=== PATIENT | female | born 2000 | race Caucasian/White ===

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

== ENCOUNTER 2018-02-03 14:51 | Emergency (ER) | payer OTHER, MEDICAID ==
[2018-02-03 16:33] LABS: KETONE, URINE AUTO RFX NEGATIVE (NEGATIVE); LEUKOCYTE ESTERASE UR AUTO RFX NEGATIVE (NEGATIVE); MUCUS, URINE RFX SMALL (NEGATIVE); NITRITE, URINE AUTO RFX NEGATIVE (NEGATIVE); RBC, URINE AUTO RFX 7 /HPF (0-3); SPECIFIC GRAVITY UR AUTO RFX 1.014 (1.002-1.035); SQUAM EPITHELIAL CELL UR AURFX 2 /HPF (0-6); WBC, URINE AUTO RFX 3 /HPF (0-3)
[2018-02-03 18:04] LABS: CONTROL LINE UCG INT CTR LINE PRESENT; URINE PREG TEST NEGATIVE (NEGATIVE)
[2018-02-03 22:08] LABS: CHLAMYDIA DNA AMPLIFICATION NEGATIVE (NEGATIVE); GC DNA AMPLIFICATION NEGATIVE (NEGATIVE)
== END 2018-02-03 20:51 | disposition home or self-care (01) ==
LOC: M ED 14:51
DX: N93.9 Abnormal uterine and vaginal bleeding, unspecified (principal); N83.01 Follicular cyst of right ovary; N85.00 Endometrial hyperplasia, unspecified; Z97.5 Presence of (intrauterine) contraceptive device; F17.200 Nicotine dependence, unspecified, uncomplicated; Z79.899 Other long term (current) drug therapy
CPT/HCPCS: 76856

== ENCOUNTER 2018-08-25 19:43 | Emergency (ER) | payer OTHER | END 2018-08-25 21:24 | disposition home or self-care (01) | LOC: M ED 19:43 | DX: S39.002A Unspecified injury of muscle, fascia and tendon of lower back, initial encounter (principal); S16.1XXA Strain of muscle, fascia and tendon at neck level, initial encounter; V49.59XA Passenger injured in collision with other motor vehicles in traffic accident, initial encounter; Y92.410 Unspecified street and highway as the place of occurrence of the external cause; Z88.0 Allergy status to penicillin; F17.210 Nicotine dependence, cigarettes, uncomplicated | CPT/HCPCS: 70450 ==

== ENCOUNTER 2019-02-12 09:52 | Emergency (ER) | payer OTHER, SELFPAY ==
[~2019-02-12] VITALS: Ht 152.4 cm; Wt 62.7 kg
[~2019-02-12 09:52] MED LIST: IBUP-1114 PO; TYLE325T5 PO; ZYRT10CA5 PO
[2019-02-12] MEDS ORDERED: METOCLOPRAMIDE INJ 10MG/2ML VIAL (J2765) IV ONE (10:30)
[2019-02-12] MEDS ORDERED: NS 1,000 ML IV ONE (10:30)
[2019-02-12 11:03] LABS: HCG, SERUM QUALITATIVE NEGATIVE (NEGATIVE)
[2019-02-12 11:06] LABS: BLOOD UREA NITROGEN 12 MG/DL (7-18); CALCIUM LEVEL 8.6 MG/DL (8.5-10.1); CARBON DIOXIDE LEVEL 24 MEQ/L (21-32); CHLORIDE LEVEL 109 MEQ/L (98-107); CREATININE FOR GFR 0.58 MG/DL (0.55-1.30); GLUCOSE, FASTING 85 MG/DL (70-100); POTASSIUM SERUM 4.2 MEQ/L (3.5-5.1); SODIUM LEVEL 141 MEQ/L (136-145)
[2019-02-12 11:45] VITALS: BP 103/60
== END 2019-02-12 11:47 | disposition home or self-care (01) ==
LOC: M ED 09:52
DX: R11.2 Nausea with vomiting, unspecified (principal); R19.7 Diarrhea, unspecified; Z88.0 Allergy status to penicillin
CPT/HCPCS: 80048; 84703; 96361; 96374; 99284; J2765

== ENCOUNTER 2019-12-10 21:54 | Emergency (ER) | payer MEDICAID, OTHER, SELFPAY ==
[~2019-12-10] VITALS: Ht 152.4 cm; Wt 64.3 kg
[2019-12-10 21:55] VITALS: BP 107/75
[2019-12-10 22:51] LABS: INFLUENZA A AMPLIFICATION NEGATIVE (NEGATIVE); INFLUENZA B AMPLIFICATION POSITIVE (NEGATIVE)
[2019-12-10] MEDS ORDERED: OSEL75CA PO (22:58)
[2019-12-10] MEDS ORDERED: OSELTAMIVIR PHOSPHATE 75 MG CAP (TAMIFLU) PO ONE (23:00)
--- NOTE | 2019-12-11 06:58 | REP ---
Clinical: Cough and shortness of breath . Comparison: None . Technique: PA and lateral. Findings: The mediastinum and cardiac silhouette are normal. The lung fischer are clear and without acute consolidation, effusion, or pneumothorax. The skeletal structures are intact and normal. Impression: 1. No focal consolidation or effusion. Electronically Signed by Gavino Ferguson MD 12/11/2019 06:49 A
== END 2019-12-10 23:19 | disposition home or self-care (01) ==
LOC: M ED 21:54
DX: J10.1 Influenza due to other identified influenza virus with other respiratory manifestations (principal); R11.2 Nausea with vomiting, unspecified; F17.210 Nicotine dependence, cigarettes, uncomplicated; Z88.0 Allergy status to penicillin

== ENCOUNTER 2020-04-05 17:29 | Emergency (ER) | payer MEDICAID ==
[~2020-04-05] VITALS: Ht 152.4 cm; Wt 60.3 kg
[~2020-04-05 17:29] MED LIST changes: +OSEL75CA PO
[2020-04-05 18:38] LABS: BASO # 0.1 10^3/uL (0.0-0.2); BASO % 0.5 % (0.0-1.0); EOS # 0.2 10^3/uL (0.0-0.5); EOS % 1.6 % (0.0-3.0); HEMATOCRIT 44.8 % (36.0-47.0); HEMOGLOBIN 15.3 g/dl (12.0-15.5); LYMPH # 1.9 10^3/uL (1.5-5.0); LYMPH % 19.7 % (24.0-44.0); MEAN CORPUSCULAR HEMOGLOBIN 31.7 pg (27.0-33.0); MEAN CORPUSCULAR HGB CONC 34.2 g/dl (32.0-36.5); MEAN CORPUSCULAR VOLUME 92.9 fl (80.0-96.0); MONO # 0.9 10^3/uL (0.0-0.8); MONO % 9.6 % (0.0-5.0); NEUTROPHILS # 6.4 10^3/uL (1.5-8.5); NEUTROPHILS % 68.2 % (36.0-66.0); PLATELET COUNT, AUTOMATED 363 10^3/uL (150-450); RED BLOOD COUNT 4.82 10^6/uL (4.00-5.40); WHITE BLOOD COUNT 9.4 10^3/uL (4.0-10.0)
[2020-04-05 19:11] LABS: ALBUMIN 4.1 GM/DL (3.2-5.2); BILIRUBIN,DIRECT 0.2 MG/DL (0.0-0.2); BILIRUBIN,TOTAL 0.5 MG/DL (0.2-1.0)
[2020-04-05] MEDS ORDERED: ISOVUE-370 76% 100ML VIAL As Ordered ONE (20:24)
[2020-04-05 21:43] VITALS: BP 125/62
--- NOTE | 2020-04-06 13:04 | REP ---
REASON FOR EXAM: Right lower quadrant pain. COMPARISON: None. CONTRAST: 100 mL [id number]. Preliminary report was given by [facility]R. The lung bases are clear. The liver, gallbladder, spleen, pancreas, adrenal glands, and kidneys are within normal limits. The abdominal aorta and para-aortic regions are within normal limits. The bowel loops and their mesenteries are within normal limits. The appendix is well visualized and is within normal limits. No free fluid or free air is seen in the abdomen. There is no intra-abdominal mass or adenopathy. CT PELVIS: The bowel loops and their mesenteries are within normal limits. There is no free pelvic air. There is a trace amount of free pelvic fluid, likely physiologic. There is no pelvic mass. Bone window technique through the examination shows the osseous structures to be within normal limits. IMPRESSION: CT findings are within normal limits. Electronically Signed by Michael Healy DO 04/06/2020 02:31 P
== END 2020-04-05 21:44 | disposition home or self-care (01) ==
LOC: M ED 17:29
DX: R10.9 Unspecified abdominal pain (principal); R11.2 Nausea with vomiting, unspecified; Z88.0 Allergy status to penicillin; F17.210 Nicotine dependence, cigarettes, uncomplicated; F12.20 Cannabis dependence, uncomplicated
CPT/HCPCS: 36415; 74177; 80047; 80076; 81001; 83690; 84702; 85025; 99284; Q9967

== ENCOUNTER → 2021-10-12 | Outpatient (REF) | payer OTHER ==
[2021-10-12 18:40] LABS: RSV AMPLIFICATION NEGATIVE (NEGATIVE)
== END ==
LOC: M LAB REF 16:47
PROVIDERS: ATTEND Physician Assistant
DX: R50.9 Fever, unspecified (principal); R05.9 Cough, unspecified

== ENCOUNTER → 2022-02-04 | Outpatient (REF) | payer OTHER | LOC: M LAB REF 16:30 | PROVIDERS: ATTEND Physician Assistant | DX: J02.9 Acute pharyngitis, unspecified (principal) ==

== ENCOUNTER → 2023-03-13 | Outpatient (CLI) | payer OTHER ==
[2023-03-13 13:58] LABS: HEMATOCRIT 39.6 % (36.0-47.0); HEMOGLOBIN 13.1 g/dl (12.0-15.5); MEAN CORPUSCULAR HEMOGLOBIN 31.3 pg (27.0-33.0); MEAN CORPUSCULAR HGB CONC 33.1 g/dl (32.0-36.5); MEAN CORPUSCULAR VOLUME 94.7 fl (80.0-96.0); PLATELET COUNT, AUTOMATED 343 10^3/uL (150-450); RED BLOOD COUNT 4.18 10^6/uL (4.00-5.40); WHITE BLOOD COUNT 9.2 10^3/uL (4.0-10.0)
[2023-03-13 14:51] LABS: HIV 1&2 SCREEN NEGATIVE (NEGATIVE)
[2023-03-13 15:17] LABS: GC DNA AMPLIFICATION NEGATIVE (NEGATIVE)
== END ==
LOC: M PLALAB 10:36
PROVIDERS: ATTEND Obstetrics & Gynecology
DX: Z34.80 Encounter for supervision of other normal pregnancy, unspecified trimester (principal)

== ENCOUNTER → 2023-04-29 | Outpatient (CLI) | payer OTHER | LOC: M PLALAB 15:12 | PROVIDERS: ATTEND Advanced Practice Midwife | DX: Z34.82 Encounter for supervision of other normal pregnancy, second trimester (principal) ==

== ENCOUNTER → 2023-05-02 | Outpatient (CLI) | payer OTHER | LOC: M PLALAB 15:58 | PROVIDERS: ATTEND Advanced Practice Midwife | DX: Z34.80 Encounter for supervision of other normal pregnancy, unspecified trimester (principal) ==

== ENCOUNTER → 2023-06-04 | Outpatient (CLI) | payer OTHER | LOC: M WHC 15:30 | PROVIDERS: ATTEND Advanced Practice Midwife | DX: Z34.02 Encounter for supervision of normal first pregnancy, second trimester (principal) ==

== ENCOUNTER → 2023-07-17 | Outpatient (CLI) | payer OTHER | LOC: M WHC 14:13 | PROVIDERS: ATTEND Advanced Practice Midwife | DX: Z34.02 Encounter for supervision of normal first pregnancy, second trimester (principal) ==

== ENCOUNTER → 2023-08-15 | Outpatient (CLI) | payer OTHER ==
[2023-08-15 18:07] LABS: HEMATOCRIT 32.8 % (36.0-47.0); HEMOGLOBIN 11.1 g/dl (12.0-15.5); MEAN CORPUSCULAR HEMOGLOBIN 31.7 pg (27.0-33.0); MEAN CORPUSCULAR HGB CONC 33.8 g/dl (32.0-36.5); MEAN CORPUSCULAR VOLUME 93.7 fl (80.0-96.0); PLATELET COUNT, AUTOMATED 315 10^3/uL (150-450); WHITE BLOOD COUNT 8.3 10^3/uL (4.0-10.0)
[2023-08-15 19:59] LABS: GC DNA AMPLIFICATION NEGATIVE (NEGATIVE)
== END ==
LOC: M PLALAB 14:10
PROVIDERS: ATTEND Advanced Practice Midwife
DX: Z34.02 Encounter for supervision of normal first pregnancy, second trimester (principal)

== ENCOUNTER → 2023-09-29 | Outpatient (REF) | payer OTHER | LOC: M SFHCWAGY 12:26 | PROVIDERS: ATTEND Specialist | DX: Z34.03 Encounter for supervision of normal first pregnancy, third trimester (principal) ==

== ENCOUNTER 2023-10-20 17:36 | Inpatient (IN) | payer OTHER ==
[~2023-10-20] VITALS: Ht 152.4 cm; Wt 82.4 kg
[2023-10-20 17:57] VITALS: BP 126/77
[2023-10-20 19:35] VITALS: BP 134/63
[2023-10-20] MEDS ORDERED: LACTATED RINGER'S 1000 ML IV STA (20:09)
[2023-10-20] MEDS ORDERED: CARBOPROST TROMETHAMINE 250 MCG/ML AMP IM PRN (20:10)
[2023-10-20] MEDS ORDERED: METHYLERGONOVINE MALEATE 0.2MG/ML 1ML VIAL IM PRN (20:10)
[2023-10-20] MEDS ORDERED: LIDOCAINE 1% MDV 20ML VIAL INFIL PRN (20:10)
[2023-10-20] MEDS ORDERED: OXYTOCIN DRIP 30 UNITS in IV 1 EA IV PRN (20:10)
[2023-10-20] MEDS ORDERED: TRANEXAMIC ACID INJection 1,000 MG in NS 100 ML IV PRN (20:10)
[2023-10-20] MEDS ORDERED: OXYTOCIN INJ 10UNITS/ML 1ML VIAL IM PRN (20:10)
[2023-10-20] MEDS ORDERED: HOME MED LIST COMPLETE! XX SCH (20:50)
[2023-10-20 20:53] LABS: HEMATOCRIT 33.2 % (36.0-47.0); HEMOGLOBIN 11.3 g/dl (12.0-15.5); MEAN CORPUSCULAR HEMOGLOBIN 30.3 pg (27.0-33.0); PLATELET COUNT, AUTOMATED 369 10^3/uL (150-450); RED BLOOD COUNT 3.73 10^6/uL (4.00-5.40); WHITE BLOOD COUNT 10.9 10^3/uL (4.0-10.0)
[2023-10-20 21:07] VITALS: BP 108/59
[2023-10-20 22:26] VITALS: BP 140/62
[2023-10-20 22:27] VITALS: BP 112/55
[2023-10-20 23:53] VITALS: BP 136/79
[2023-10-21] VITALS (8 sets, daily range): BP systolic 118–135; BP diastolic 59–86
[2023-10-21] MEDS ORDERED: IBUPROFEN 600MG TAB PO PRN (01:30)
[2023-10-21] MEDS ORDERED: MOM 30ML SUSPENSION UDC PO PRN (01:30)
[2023-10-21] MEDS ORDERED: ANUSOL HC CREAM 30GM TOP PRN (01:30)
[2023-10-21] MEDS ORDERED: DIBUCAINE 1% OINTMENT 30GM TOP PRN (01:30)
[2023-10-21] MEDS ORDERED: IBUPROFEN 800 MG TAB PO PRN (01:30)
[2023-10-21] MEDS ORDERED: ACETAMINOPHEN TAB 650MG DOSE (2X325MG) PO PRN (01:30)
[2023-10-21] MEDS ORDERED: DOCUSATE SODIUM 100MG CAPSULE PO PRN (01:30)
[2023-10-21] MEDS ORDERED: RHOGAM 300MCG (1500IU) INJ IM SCH (01:30)
[2023-10-21] MEDS ORDERED: ACETAMINOPHEN 500 MG TAB PO PRN (01:30)
[2023-10-21] MEDS: PRENATAL VITAMINS CHEWABLE TABLET PO SCH (08:27)
[2023-10-22 06:00] VITALS: BP 110/52
[2023-10-22] MEDS: PRENATAL VITAMINS CHEWABLE TABLET PO SCH (09:25)
[2023-10-22 18:00] VITALS: BP 117/66; O2SAT 99
[2023-10-23 06:00] VITALS: BP 106/64; O2SAT 99
[2023-10-23] MEDS: PRENATAL VITAMINS CHEWABLE TABLET PO SCH (08:37)
[2023-10-23] MEDS ORDERED: MEASLES,MUMPS,RUBELLA VACCINE INJ (MMR-II) SC.IMMUN ONE (09:00)
[2023-10-23] MEDS ORDERED: ACET1TAB55 PO (11:18)
[2023-10-23] MEDS ORDERED: IBUP-1022 PO (11:18)
== END 2023-10-23 15:00 | disposition home or self-care (01) | DRG 560 ==
LOC: M LDO 17:36 → M LDI 20:20 → M OBS 10-21 03:20
PROVIDERS: ADMIT Advanced Practice Midwife; ATTEND Advanced Practice Midwife
PROC: 10E0XZZ Delivery of Products of Conception, External Approach (ICD-10-PCS; principal; 2023-10-21)
PROC: 0HQ9XZZ Repair Perineum Skin, External Approach (ICD-10-PCS; 2023-10-21)
DX: O70.0 First degree perineal laceration during delivery (principal); Z88.0 Allergy status to penicillin; Z3A.38 38 weeks gestation of pregnancy; Z37.0 Single live birth

== ENCOUNTER → 2025-01-21 | Outpatient (CLI) | payer OTHER, MEDICAID ==
[~2025-01-21] MED LIST changes: +ACET1TAB55 PO; +IBUP-1022 PO
== END ==
LOC: M RAD 15:17
PROVIDERS: ATTEND Physician Assistant
DX: S62.616A Displaced fracture of proximal phalanx of right little finger, initial encounter for closed fracture (principal); Y93.9 Activity, unspecified; Y92.9 Unspecified place or not applicable

== ENCOUNTER → 2025-05-09 | Outpatient (CLI) | payer OTHER | LOC: M PLALAB 10:58 | PROVIDERS: ATTEND Nurse Practitioner Family | DX: Z34.80 Encounter for supervision of other normal pregnancy, unspecified trimester (principal) ==

== ENCOUNTER → 2025-05-11 | Outpatient (REF) | payer OTHER | LOC: M SFHCCLAY 16:48 | PROVIDERS: ATTEND Nurse Practitioner Family | DX: R82.90 Unspecified abnormal findings in urine (principal) ==

== ENCOUNTER → 2025-05-18 | Outpatient (REF) | payer OTHER | LOC: M SFHCWAGY 13:03 | PROVIDERS: ATTEND Obstetrics & Gynecology | DX: Z34.80 Encounter for supervision of other normal pregnancy, unspecified trimester (principal) ==

== ENCOUNTER 2025-05-31 04:57 | Inpatient (IN) | payer OTHER ==
[~2025-05-31] VITALS: Ht 152.4 cm; Wt 83.4 kg
[2025-05-31] VITALS (10 sets, daily range): BP systolic 107–135; BP diastolic 57–80; O2SAT 96–97
[2025-05-31] MEDS ORDERED: OXYTOCIN 30UNITS IN 0.9% NaCl 500ML IV BAG As Ordered ONE (05:30)
[2025-05-31] MEDS ORDERED: LIDOCAINE 1% MDV 20 ML VIAL As Ordered ONE (05:30)
[2025-05-31] MEDS ORDERED: OXYTOCIN INJ 10UNITS/ML 1ML VIAL As Ordered ONE (05:31)
[2025-05-31] MEDS ORDERED: CARBOPROST TROMETHAMINE 250 MCG/ML AMP IM PRN (05:55)
[2025-05-31] MEDS ORDERED: TRANEXAMIC ACID INJection 1,000 MG in NS 100 ML IV PRN (05:55)
[2025-05-31] MEDS ORDERED: METHYLERGONOVINE MALEATE 0.2 MG/ML 1 ML VIAL IM PRN (05:55)
[2025-05-31] MEDS: OXYTOCIN INJ 10UNITS/ML 1ML VIAL IM PRN (06:25)
[2025-05-31 06:40] LABS: PLATELET COUNT, AUTOMATED 339 10^3/uL (150-450)
[2025-05-31 07:28] LABS: HIV 1&2 SCREEN NEGATIVE (NEGATIVE)
[2025-05-31 07:35] LABS: HEPATITIS C VIRUS ABY INDEX < 0.02 INDEX (<0.8)
[2025-05-31] MEDS ORDERED: CALCIUM CARBONATE 500 MG CHEW U/D PO PRN (08:20)
[2025-05-31] MEDS ORDERED: ACETAMINOPHEN 325 MG TAB PO PRN (08:20)
[2025-05-31] MEDS ORDERED: ANUSOL HC CREAM 30 GM TOP PRN (08:20)
[2025-05-31] MEDS ORDERED: IBUPROFEN 600 MG TAB PO PRN (08:20)
[2025-05-31] MEDS ORDERED: DOCUSATE SODIUM 100 MG CAPSULE PO PRN (08:20)
[2025-05-31] MEDS ORDERED: IBUPROFEN 800 MG TAB PO PRN (08:20)
[2025-05-31] MEDS ORDERED: DIBUCAINE 1% OINTMENT 30 GM TOP PRN (08:20)
[2025-05-31] MEDS: PRENATAL VITAMINS CHEWABLE TABLET PO SCH (10:11)
[2025-05-31] MEDS: ACETAMINOPHEN 500 MG TAB PO PRN (17:52)
[2025-06-01 06:18] VITALS: BP 118/73; O2SAT 100
[2025-06-01] MEDS: RHOGAM 300MCG (1500IU) INJ IM SCH (11:13)
[2025-06-01] MEDS: MEASLES,MUMPS,RUBELLA VACCINE INJ (MMR-II) SC.IMMUN ONE (11:30)
== END 2025-06-01 15:25 | disposition home or self-care (01) | DRG 560 ==
LOC: M LDO 04:57 → M LDI 05:33 → M OBS 07:54
PROVIDERS: ADMIT Advanced Practice Midwife; ATTEND Advanced Practice Midwife
PROC: 10E0XZZ Delivery of Products of Conception, External Approach (ICD-10-PCS; principal; 2025-05-31)
DX: O80 Encounter for full-term uncomplicated delivery (principal); Z3A.37 37 weeks gestation of pregnancy; Z37.0 Single live birth